=== PATIENT | male | born 1950 | race Caucasian/White ===

== ENCOUNTER 2017-08-20 05:54 | Day surgery (SDC) | payer BC ==
--- NOTE | 2017-08-20 04:29 | HP ---
SHORT STAY HISTORY AND PHYSICAL DATE OF ADMISSION: 08/20/2017 HISTORY OF PRESENT ILLNESS: Mr. Nick Andrade is a very pleasant 67-year-old male with history of colon polyp. The patient has polypectomy 5 years ago. At the present time, he has no specific GI symptoms. His bowel movements are regular. No history of abdominal pain. No rectal bleeding. He is undergoing colonoscopy because of history of colon polyp. ALLERGIES: None. SOCIAL HISTORY: The patient does not smoke or drink alcohol. MEDICAL ILLNESSES: 1. Chronic acid reflux, on medical therapy. 2. Colon polyp. PHYSICAL EXAMINATION: VITAL SIGNS: Pulse is 70, blood pressure 130/70. HEENT: Conjunctivae clear. NECK: Supple. CARDIOVASCULAR SYSTEM: First and second heart sounds normal. LUNGS: Clear to auscultation. ABDOMEN: Soft to palpate. No organomegaly. No tenderness. No masses. ADMITTING DIAGNOSES: 1. Colon polyp. 2. Chronic acid reflux. PLAN: colonoscopy. JENNIFER
[2017-08-20] MEDS ORDERED: Ondansetron HCl/PF 4 MG/2 ML Vial ONE ×2 (06:56→12:31)
[2017-08-20] MEDS ORDERED: Promethazine HCl 25 MG/ML VIAL ONE (07:25)
--- NOTE | 2017-08-20 08:56 | OP ---
DATE OF PROCEDURE: 08/20/2017 SURGEON: Xiao Sahu M.D. OPERATIVE PROCEDURE: Colonoscopy with polypectomy removed with biopsy forceps. PREOPERATIVE DIAGNOSIS: A 67-year-old male with history of colon polyp. The last colonosc opy was 5 years ago. The patient undergoing a colonoscopy. POSTOPERATIVE DIAGNOSES: 1. Sessile polyp sigmoid colon, status post polypectomy with biopsy forceps. 2. Hypertrophied anal papillae. 3. Small hemorrhoids. PROCEDURE NOTE: The patient was intubated and given sedation by Anesthesia Department. The patient had been having nausea and vomiting and because of risk of aspiration, the Anesthesia provider felt t he patient should probably get intubated. The patient was turned on his left lateral position. A di gital exam was done and the exam was negative. No lesions felt. A [employer] video colonoscope was intr oduced into the rectum and passed down to cecum. The prep was excellent. The mucosa appeared normal throughout the colon with normal vascular pattern. The appendical orifice, ileocecal valve, cecum, no pathology seen. The ascending colon, hepatic flexure, transverse colon, splenic flexure, descendi ng colon, no pathology seen. There is a small sessile sigmoid polyp removed completely with biopsy f orceps. Retroflexion of the scope in the rectum showed hypertrophic anal papilla. DISCHARGE PLANNING: This is a 67-year-old male with a history of colon polyp came in for c olonoscopy. He underwent colonoscopy with polypectomy. DISCHARGE RECOMMENDATIONS: 1. The patient advised to call me if he develops abdominal pain or hematochezia. 2. To come back to clinic in 2 weeks. RECOMMENDATION: Repeat colonoscopy in 5 years.
[2017-08-20] MEDS ORDERED: PROPOFOL 200 MG/20 ML VIAL ONE (12:31)
[2017-08-20] MEDS ORDERED: Lidocaine 1% PF 5 ML VIAL ONE (12:31)
[2017-08-20] MEDS ORDERED: Succinylcholine Chloride 20 MG/ML 10 ml SYRINGE FS ONE (12:31)
== END 2017-08-20 09:05 | disposition home or self-care (01) ==
LOC: SDC 05:54
PROVIDERS: ATTEND Internal Medicine Gastroenterology
PROC: 0DBN8ZX Excision of Sigmoid Colon, Via Natural or Artificial Opening Endoscopic, Diagnostic (ICD-10-PCS; principal; 2017-08-20)
DX: Z12.11 Encounter for screening for malignant neoplasm of colon (principal); D12.5 Benign neoplasm of sigmoid colon; K64.8 Other hemorrhoids; K62.89 Other specified diseases of anus and rectum; K21.9 Gastro-esophageal reflux disease without esophagitis; Z79.82 Long term (current) use of aspirin; Z79.899 Other long term (current) drug therapy; Z86.010 Personal history of colon polyps
CPT/HCPCS: 88305; J2001; J2405; J2550; J2704

== ENCOUNTER 2022-03-16 13:33 | Outpatient (CLI) | payer BC | END 2022-03-16 13:34 | disposition home or self-care (01) | LOC: BICRAD 13:33 | PROVIDERS: ATTEND Chiropractor | DX: M47.26 Other spondylosis with radiculopathy, lumbar region (principal) | CPT/HCPCS: 72100 ==